=== PATIENT | male | born 1955 | race Caucasian/White ===

== ENCOUNTER 2017-11-26 09:45 | Inpatient (IN) | payer OTHER ==
[~2017-11-26] VITALS: Ht 180.3 cm; Wt 88.0 kg
[~2017-11-26 09:45] MED LIST: ABIL5TAB6 PO; XANA1TAB6 PO
[2017-11-26 10:05] VITALS: BP 175/101; PULSE 91; RESP 22; TEMP 98.9; O2SAT 98
[2017-11-26] MEDS ORDERED: XANA1TAB2 PO (10:19)
[2017-11-26] MEDS ORDERED: ABIL10TA8 PO (10:19)
[2017-11-26 10:52] LABS: AUTOMATED NEUTROPHIL # 4.4 TH/MM3 (1.8-7.7); BASOPHIL # 0.1 TH/MM3 (0-0.2); BASOPHIL % 0.7 % (0.0-2.0); EOSINOPHIL # 0.4 TH/MM3 (0-0.4); EOSINOPHIL % 5.1 % (0.0-4.0); HEMOGLOBIN 15.2 GM/DL (13.0-17.0); LYMPH % 26.1 % (9.0-44.0); MEAN CORPUSCULAR HEMOGLOBIN 29.1 PG (27.0-34.0); MEAN CORPUSCULAR HGB CONC 33.8 % (32.0-36.0); MEAN PLATELET VOLUME 7.9 FL (7.0-11.0); MONOCYTE # 0.9 TH/MM3 (0-0.9); NEUT % 56.1 % (16.0-70.0); PLATELET COUNT 247 TH/MM3 (150-450); RED BLOOD COUNT 5.23 MIL/MM3 (4.50-5.90); RED CELL DISTRIBUTION WIDTH 14.8 % (11.6-17.2); WHITE BLOOD COUNT 7.8 TH/MM3 (4.0-11.0)
[2017-11-26 11:10] LABS: ALBUMIN 4.2 GM/DL (3.4-5.0); AST (GOT) 58 U/L (15-37); BLOOD UREA NITROGEN 13 MG/DL (7-18); CALCIUM 9.7 MG/DL (8.5-10.1); CHLORIDE 104 MEQ/L (98-107); GLOMERULAR FILTRATION RATE 115 ML/MIN (>89); GLUCOSE,RANDOM 85 MG/DL (74-106); SODIUM (NA) 139 MEQ/L (136-145)
[2017-11-26 11:11] LABS: ALT (GPT) 98 U/L (12-78)
[2017-11-26 11:13] LABS: ALKALINE PHOSPHATASE 67 U/L (45-117); TOTAL BILIRUBIN ADULT 0.6 MG/DL (0.2-1.0)
--- NOTE | 2017-11-26 12:14 | PD ---
HPI Chief Complaint: Psychiatric Symptoms Time Seen by Provider: 12:11 Travel History International Travel<30 days: No Contact w/Intl Traveler<30days: No Traveled to known affect area: No History of Present Illness HPI 62-year-old male presents emergency Department under [place] act. His primary care provider Basilio acted him after being seen in the office requesting his medications to be changed back to his previous medications of Paxil and Xanax. The [place] act report states "patient called this morning stating that he is having suicidal and homicidal thoughts. He is extremely agitated now, pacing the room and becoming combative. He denies previous history of suicide attempts." On my examination the patient denies suicidal or homicidal ideations. Denies plan. Denies history of attempts. He states he was on Paxil and Xanax for 14 years and saw a new primary care provider in October who changed his medications and then he started "feeling weird." He went this morning to her office to ask for medication change and she Basilio acted him. He denies illicit drug use. Reports occasional alcohol use. Denies hallucinations. Has history of anxiety and panic attacks. History of hypertension. Onset unknown. Duration unknown. Symptoms are aggravated by medication change. Says his symptoms were better when he was on his old medications. No known allergies. Primary care provider is Dr. Blanco. Has no other medical complaints. Denies chest pain, shortness of abdominal pain, vomiting, fevers, change in urine or stool. No other modifying factors or associated signs and symptoms. PFSH Past Medical History Bipolar Disorder: Yes Anxiety: Yes Cardiovascular Problems: Yes (HTN) Hypertension: Yes Psychiatric: Yes Tetanus Vaccination: < 5 Years Social History Alcohol Use: No Tobacco Use: Yes Substance Use: No Allergies-Medications (Allergen,Severity, Reaction): Coded Allergies: No Known Allergies (Unverified Adverse Reaction, Unknown, 11/26/17) Reported Meds & Prescriptions Reported Meds & Active Scripts Active Reported Clonidine (Clonidine HCl) 0.1 Mg Tab 0.1 Mg PO HS Abilify (Aripiprazole) 10 Mg Tab 5 Mg PO DAILY Review of Systems Except as stated in HPI: all other systems reviewed are Neg Physical Exam Narrative GENERAL: Well-nourished, well-developed male patient, in no acute distress SKIN: Warm and dry. HEAD: Atraumatic. Normocephalic. EYES: Pupils equal and round. ENT: Mucosa pink and moist. NECK: Supple. Trachea midline. CARDIOVASCULAR: Regular rate and rhythm. No murmur appreciated. RESPIRATORY: No accessory muscle use. Clear to auscultation. Breath sounds equal bilaterally. GASTROINTESTINAL: Abdomen soft, non-tender, nondistended. Hepatic and splenic margins not palpable. Bowel sounds are active 4 quadrants. MUSCULOSKELETAL: No obvious deformities. No clubbing. No cyanosis. No edema. BACK: No CVA tenderness. NEUROLOGICAL: Awake and alert. Oriented 3. No obvious cranial nerve deficits. Motor grossly within normal limits. Normal speech. Moves all extremities. 5/5 strength to all extremities. PSYCHIATRIC: No delusional thought processes. No hallucinations. Data Data Last Documented VS Vital Signs Date Time Temp Pulse Resp B/P (MAP) Pulse Ox O2 Delivery O2 Flow Rate FiO2 11/26/17 10:05 98.9 91 22 175/101 (125) 98 Orders Orders Complete Blood Count With Diff (11/26/17 10:21) Comprehensive Metabolic Panel (11/26/17 10:21) Psych Screen (11/26/17 10:21) Drug Screen, Random Urine (11/26/17 10:21) Alcohol (Ethanol) (11/26/17 10:21) Labs Laboratory Tests Test 11/26/17 10:30 11/26/17 11:15 White Blood Count 7.8 TH/MM3 Red Blood Count 5.23 MIL/MM3 Hemoglobin 15.2 GM/DL Hematocrit 45.0 % Mean Corpuscular Volume 86.0 FL Mean Corpuscular Hemoglobin 29.1 PG Mean Corpuscular Hemoglobin Concent 33.8 % Red Cell Distribution Width 14.8 % Platelet Count 247 TH/MM3 Mean Platelet Volume 7.9 FL Neutrophils (%) (Auto) 56.1 % Lymphocytes (%) (Auto) 26.1 % Monocytes (%) (Auto) 12.0 % Eosinophils (%) (Auto) 5.1 % Basophils (%) (Auto) 0.7 % Neutrophils # (Auto) 4.4 TH/MM3 Lymphocytes # (Auto) 2.0 TH/MM3 Monocytes # (Auto) 0.9 TH/MM3 Eosinophils # (Auto) 0.4 TH/MM3 Basophils # (Auto) 0.1 TH/MM3 CBC Comment DIFF FINAL Differential Comment Blood Urea Nitrogen 13 MG/DL Creatinine 0.70 MG/DL Random Glucose 85 MG/DL Total Protein 8.0 GM/DL Albumin 4.2 GM/DL Calcium Level 9.7 MG/DL Alkaline Phosphatase 67 U/L Aspartate Amino Transf (AST/SGOT) 58 U/L Alanine Aminotransferase (ALT/SGPT) 98 U/L Total Bilirubin 0.6 MG/DL Sodium Level 139 MEQ/L Potassium Level 4.3 MEQ/L Chloride Level 104 MEQ/L Carbon Dioxide Level 27.0 MEQ/L Anion Gap 8 MEQ/L Estimat Glomerular Filtration Rate 115 ML/MIN Ethyl Alcohol Level LESS THAN 3 MG/DL Urine Opiates Screen NEG Urine Barbiturates Screen NEG Urine Amphetamines Screen NEG Urine Benzodiazepines Screen POS Urine Cocaine Screen NEG Urine Cannabinoids Screen NEG MDM Medical Decision Making Medical Screen Exam Complete: Yes Emergency Medical Condition: Yes Medical Record Reviewed: Yes Differential Diagnosis Medical clearance for psychiatric evaluation, medication adjustment, suicidal ideation, homicidal ideation Narrative Course Patient presents under a [place] act. Physical examination and vital signs are essentially unremarkable. Patient has no medical complaints to report. Psych screen has been ordered. If the laboratory results are unremarkable, the patient will be medically cleared for psychiatric evaluation and disposition. Diagnosis Primary Impression: Medical clearance for psychiatric admission Condition: Stable Melissa Urbina Nov 26, 2017 12:14
[2017-11-26] MEDS ORDERED: CLON0.1T PO (13:35)
[2017-11-26 14:20] VITALS: BP 162/94; PULSE 87; RESP 20; O2SAT 99
[2017-11-26 17:53] VITALS: BP 158/101; PULSE 77; RESP 18; O2SAT 98
[2017-11-26 18:07] VITALS: BP 151/102; PULSE 77; RESP 18; O2SAT 98
[2017-11-26] MEDS ORDERED: LORazepam 2 MG/ML VIAL IM PRN (20:45)
[2017-11-26] MEDS ORDERED: ALUMINUM/MAGNESIUM/SIMETH 30 ML CUP PO PRN (20:45)
[2017-11-26] MEDS ORDERED: LORazepam 1 MG TAB PO PRN (20:45)
[2017-11-26] MEDS ORDERED: MAGNESIUM HYDROXIDE SUSP 30 ML CUP PO PRN (20:45)
--- NOTE | 2017-11-26 20:58 | RADRPT ---
EXAM DATE/TIME: 11/26/2017 20:42 [facility] COMPARISON: No previous studies available for comparison. INDICATIONS : Pain status post falling onto right shoulder. MEDICAL HISTORY : None. SURGICAL HISTORY : None. ENCOUNTER: Initial ACUITY: 1 day PAIN SCORE: 5/10 LOCATION: Right Shoulder FINDINGS: There are old healed rib fractures in the right lower chest. There is a deformity of the humeral head superolaterally mostly due to old trauma with probable old avulsion coming off the inferior glenoid with vague areas of sclerosis within the humeral head all chronic in nature. CONCLUSION: Chronic changes and no evidence for acute fracture. Jorden Hu MD on November 26, 2017 at 20:54 Board Certified Radiologist. This report was verified electronically.
[2017-11-26] MEDS: REMOVE OLD NICOTINE PATCH T-DERMAL SCH (21:00)
[2017-11-26 21:51] VITALS: BP 196/120; PULSE 84; RESP 18; TEMP 98.2; O2SAT 98
[2017-11-26] MEDS: ACETAMINOPHEN 325 MG TAB PO PRN (22:40)
[2017-11-26] MEDS ORDERED: cloNIDine HCL 0.1 MG TAB PO ONE (22:45)
[2017-11-27 05:42] VITALS: BP 124/92; PULSE 77; RESP 16; TEMP 97.7; O2SAT 96
[2017-11-27] MEDS: ACETAMINOPHEN 325 MG TAB PO PRN ×3 (05:54→20:38)
[2017-11-27 08:40] LABS: BICARBONATE 26.9 MEQ/L (21.0-32.0); BLOOD UREA NITROGEN 11 MG/DL (7-18); CALCIUM 9.5 MG/DL (8.5-10.1); CHLORIDE 102 MEQ/L (98-107); CREATININE 0.69 MG/DL (0.60-1.30); GLOMERULAR FILTRATION RATE 117 ML/MIN (>89); GLUCOSE,RANDOM 96 MG/DL (74-106); SODIUM (NA) 139 MEQ/L (136-145)
[2017-11-27 08:42] LABS: CHOLESTEROL 158 MG/DL (120-200); TRIGLYCERIDES 69 MG/DL (42-150)
[2017-11-27 08:44] LABS: CHOLESTEROL/ HDL RATIO 2.51 RATIO; HDL CHOLESTEROL 62.7 MG/DL (40.0-60.0); LDL CHOLESTEROL 82 MG/DL (0-99)
[2017-11-27] MEDS: NICOTINE 21 MG/24 HR PATCH T-DERMAL SCH (09:00)
[2017-11-27] MEDS: LISINOPRIL 5 MG TAB PO SCH ×2 (09:15→20:36)
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
[2017-11-27] MEDS ORDERED: cloNIDine HCL 0.1 MG TAB PO PRN (09:30)
[2017-11-27 16:20] LABS: HEMOGLOBIN A1C 5.7 % (4.3-6.0)
--- NOTE | 2017-11-27 16:29 | HHI.HP ---
Provisional Diagnosis Admission Date Nov 26, 2017 at 19:07 Diana I. Adjustment disorder with mixed disturbances of emotion and conduct f 43.25 Certification of Person's Competence To Provide Express and Informed Consent I have personally examined Freddy Parrish , a person being served at [facility] on, Nov 27, 2017 16:20. Express and informed consent means consent voluntarily given in writing, by a competent person, after sufficient explanation and disclosure of the subject matter involved to enable the person to make a knowing and willful decision without any element of force, fraud, deceit, duress, or other form of constraint or coercion. This person is 18 years of age or older, is not now known to be incompetent to consent to treatment with a guardian advocate, and does not have a health care surrogate or proxy currently making medical treatment decisions. I have found this person to be one of the following: [] Competent to provide express and informed consent, as defined above, for voluntary admission to this facility and is competent to provide express and informed consent for treatment. He/she has the consistent capacity to make well reasoned, willful, and knowing decisions concerning his or her medical or mental health treatment. The person fully and consistently understands the purpose of the admission for examination/placement and is fully capable of personally exercising all rights assured [place] [] Incompetent to provide express and informed consent to voluntary admission, and this is incompetent to provide express and informed consent to treatment. The person must be transferred to involuntary status and a petition for a guardian advocate filed with the Circuit Court. [] Refusing to provide express and informed consent to voluntary admission but is competent to provide express and informed consent for treatment. The person must be discharged or transferred to involuntary status. Form shall be completed within 24 hours of a person's arrival at the receiving facility and filed in the clinical record of each person: 1. Admitted on a voluntary basis 2. Permitted to provide express and informed consent to his/her own treatment 3. Allowed to transfer from involuntary to voluntary status 4. Prior to permitting a person to consent to his or her own treatment after having been previously found incompetent to consent to treatment. History of Present Illness Capacity: Has Capacity HPI Patient is a 62-year-old white male comes here under [place] act by his primary care physician be contacted stating he was depressed suicidal feeling strange because of medication changes occurred over the past few months. It appears this man was on Paxil and Xanax for number of years who problems a prior physician less than a year ago switched him to other medications. He said his been feeling funny strange depressed and anxious since then. However he did stop those medications a few days ago. Patient is seen screened in the ED urine toxicology positive for benzodiazepines negative for alcohol. 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 He denies any suicidality homicidality voices or visions. Denies any alcohol or drug use. Denies any prior psychiatric contact or hospitalizations her psychotropic medications. He states he felt his behavior was secondary to adverse reactions to new medications of now he is off of them is feeling much better. Is able contracted to no harm. However distally feel patient does meet criteria for further observation for another 24-36 hours. He has been seen by the [facility] galvanizer and he has been medically checked. Will refrain from any psychotropics or antianxiety medication. I do feel he has capacity thus I'll lift [place] act allow her sign voluntary. Patient continues consistent tomorrow will discharge her tomorrow Review of Systems Except as stated in HPI: all other systems reviewed are Neg Past Psych History Psychological trauma history Patient denies Violence risk - others (6 mos) Low Violence risk - self (6 mos) Low Substance Abuse History Drugs/Alcohol past 12 months Denies Past Family Social History Coded Allergies: No Known Allergies (Unverified Allergy, Unknown, 11/26/17) Reported Medications Clonidine (Clonidine) 0.1 Mg Tab, 0.1 MG PO HS for Blood Pressure Management, # 60 TAB 0 Refills 11/26/17 Aripiprazole (Abilify) 10 Mg Tab, 5 MG PO DAILY, #30 TAB 0 Refills 11/26/17 Discontinued Reported Medications Alprazolam (Xanax) 1 Mg Tab, 1 MG PO BID Y for ANXIETY, TAB 0 Refills 11/26/17 Current Medications Medications (Trade) Dose Ordered Sig/Gutierrez Route Start Time Stop Time Status Last Admin (Ativan) 1 mg Q6H PRN PO 11/26/17 20:45 (Ativan Inj) 1 mg Q6H PRN IM 11/26/17 20:45 (Tylenol) 650 mg Q4H PRN PO 11/26/17 20:45 11/27/17 10:42 (Milk Of Magnesia Liq) 30 ml DAILY PRN PO 11/26/17 20:45 (Mag-Al Plus Susp Liq) 30 ml Q6H PRN PO 11/26/17 20:45 (Habitrol 21 Mg Patch.24 Hr) 1 patch DAILY T-DERMAL 11/27/17 09:00 11/27/17 09:00 Miscellaneous Information 1 HS T-DERMAL 11/26/17 21:00 (Prinivil) 5 mg Q12HR PO 11/27/17 09:15 11/27/17 09:15 (Catapres) 0.1 mg Q6H PRN PO 11/27/17 09:30 Family Psych History Denies Social History Patient lives by himself close proximity to family of origin members Patient's Strengths (min. 2) Patient verbally will access healthcare Physical Exam Patient medically cleared ED at the present time sitting quietly in his room is in no acute distress. Patient no respiratory distress. No complaints of abdominal pain. Patient moving all 4 extremities without difficulty. No abnormal motor movements noted Vital Signs Vital Signs Date Time Temp Pulse Resp B/P (MAP) Pulse Ox O2 Delivery O2 Flow Rate FiO2 11/27/17 05:42 97.7 77 16 124/92 (103) 96 11/26/17 18:07 Room Air I/O 11/27/17 11/27/17 11/28/17 08:00 16:00 00:00 Intake Total 240 ml Balance 240 ml Lab Results Test 11/27/17 06:35 Blood Urea Nitrogen 11 MG/DL Creatinine 0.69 MG/DL Random Glucose 96 MG/DL Calcium Level 9.5 MG/DL Sodium Level 139 MEQ/L Potassium Level 3.6 MEQ/L Chloride Level 102 MEQ/L Carbon Dioxide Level 26.9 MEQ/L Anion Gap 10 MEQ/L Estimat Glomerular Filtration Rate 117 ML/MIN Triglycerides Level 69 MG/DL Cholesterol Level 158 MG/DL LDL Cholesterol 82 MG/DL HDL Cholesterol 62.7 MG/DL Cholesterol/HDL Ratio 2.51 RATIO Mental Status Examination Appearance: Appropriate Consciousness: Alert Orientation: x4 Motor Activity: Normal gait Speech: Unremarkable Language: Adequate Fund of Knowledge: Adequate Attention and Concentration: Adequate Memory: Unremarkable Mood: Other (euthymic to mildly dysphoric) Affect: Other (good range and intensity) Thought Process & Associations: Intact Thought Content: Appropriate Hallucination Type: None Delusion Type: None Suicidal Ideation: No Suicidal Plan: No Suicidal Intention: No Homicidal Ideation: No Homicidal Plan: No Homicidal Intention: No Insight: Adequate Judgment: Adequate Assessment & Plan Problem List: (1) Acute adjustment disorder with mixed disturbance of emotions and conduct ICD Codes: F43.25 - Adjustment disorder with mixed disturbance of emotions and conduct Assessment & Plan Estimated LOS: days patient does meet criteria for further assessment observation another 24-36 hours. Patient does have capacity at this time thus I 'll lift [place] Pavel sign voluntary. Will refrain from any psychotropic medications. Consideration of discharge tomorrow if remains stable and consistent Discharge Planning Possible discharge tomorrow Request HC Surrog/Guard Advoc?: No Freddy Barkley MD Nov 27, 2017 16:29
[2017-11-27] MEDS ORDERED: LISI-519 PO (17:15)
[2017-11-27 17:28] VITALS: BP 140/91; PULSE 69; RESP 17; TEMP 98.5; O2SAT 98
[2017-11-27] MEDS: REMOVE OLD NICOTINE PATCH T-DERMAL SCH (20:36)
[2017-11-28] MEDS: ACETAMINOPHEN 325 MG TAB PO PRN ×2 (04:27→09:20)
[2017-11-28 06:05] VITALS: BP 122/71; PULSE 67; RESP 16; TEMP 98.1; O2SAT 97
[2017-11-28] MEDS: NICOTINE 21 MG/24 HR PATCH T-DERMAL SCH (09:21)
[2017-11-28] MEDS: LISINOPRIL 5 MG TAB PO SCH (09:21)
[2017-11-28 10:20] VITALS: RESP 14
--- NOTE | 2017-11-28 11:38 | MB ---
cc: JOURDAN ALCALA TRENTON Y. PA DATE OF CONSULTATION 11/28/2015 CHIEF COMPLAINT Right shoulder pain. HISTORY OF PRESENT ILLNESS The patient is a 62-year-old white male who was [place] acted on 11/27/2017. He complains of right shoulder pain. He states that he got into an altercation with the police and they dragged or threw him down. He states at that point he says felt a "tearing of his right shoulder." He states that he has had pain in his shoulder ever since. He reports he is unable to move the shoulder. He states that anytime he moves the shoulder, it hurts from his shoulder to his neck and radiates down his right arm. He denies any numbness or tingling or radiation of symptoms. Denies pain anywhere else. Denies any shortness of breath or loss of consciousness. 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 He also reports that he has previously seen Dr. Stauffer for an orthopedic needs down in [place]. REVIEW OF SYSTEMS Negative for from except for what is mentioned in the HPI. ALLERGIES No known allergies. ILLNESSES Anxiety REPORTED MEDICATIONS 1. Clonidine 2. Aripiprazole 3. Alprazolam SOCIAL HISTORY He lives by himself in close proximity to family. PAST MEDICAL HISTORY Noncontributory PHYSICAL EXAM GENERAL: This is a well-developed, well-nourished 62-year white male in no acute distress resting comfortably while eating breakfast. HEAD: Normocephalic, atraumatic. EARS: Hearing intact bilaterally. EYES: Extraocular motions intact. Pupils equal, round react to light. NECK: Supple. No evidence of lymphadenopathy. LUNGS: No use of accessory muscles while breathing and no wheezes noted. ABDOMEN: Soft and nontender. HEART: No grade 4 murmur present. EXTREMITIES: Right arm, limited motion of the shoulder secondary to extreme pain. I am only able to achieve approximately 20 degrees of forward flexion before the patient withdrawals and has pain. He has full motion of the elbow, wrist and fingers and full sensation to median and ulnar nerves distribution. He is exquisitely tender over the biceps tendon as well as the rotator cuff on the lateral edge. I am unable to assess strength due to pain and unable to perform any special tests due to pain. Left arm, full motion of the shoulder, elbow, wrist and fingers with no pain and full sensation distally. VITALS: Temperature 98.1, pulse 67, respiratory rate 16 per minute, blood pressure 122/71, O2 saturation 97 on room air. LABORATORY DATA Hemoglobin 15.2, hematocrit 45. Sodium 139, potassium 3.6, chloride 102, CO2 26.9. His toxicology report was positive for benzodiazepines. IMAGING STUDIES X-rays were reviewed of the right shoulder which shows progressing osteoarthritis of the glenohumeral joint. Shows an undetermined age, potential fracture in the neck of the scapula. This appears to a old in nature. ASSESSMENT 1. Osteoarthritis of the right shoulder. 2. Rotator cuff tendonitis with biceps tendonitis. PLAN The treatment options were discussed with the patient. I informed him this is nonoperative management. There is nothing acutely fractured at this time. I believe he is having a flare-up of his rotator cuff muscles and biceps tendon. This is likely a result of the incident he had with the police. I would recommend [id number] NSAID's at this time. I would recommend upon discharge he follow up with either our office or with Dr. Stauffer's office for further evaluation potentially receiving a subacromial steroid injection. I believe that will give him the greatest release. There will be no orthopedic intervention needed at this time and he may follow up as needed on an outpatient basis with orthopedics. The above patient was reviewed and discussed with Dr. Alcala and he agrees with the above dictation. Dictated by Robert Bae PA-C I also saw and examined this patient. History, past medical history, social history, review of systems, physical exam, radiographs, assessment, and plan were also reviewed. Plan on nonoperative treatment. A mid-level provider in my office (nurse practitioner or physician grooming assistant) may see this patient on follow-up visits and continue to implement the objectives of this plan including : Starting or adjusting medications, injections, cast application, orthotics, brace application, physical therapy, radiological studies (including x-ray, MRI , CT, ultrasound, bone scan), vascular studies, neurologic studies, specialist consultation, and proceeding with surgical management, as appropriate. MD SAHRA Champion/FARAZ /10:29 AM /11:25 AM [email or web address]
--- NOTE | 2017-11-28 12:12 | RADRPT ---
EXAM DATE/TIME: 11/28/2017 10:17 [facility] COMPARISON: No previous studies available for comparison. INDICATIONS : Right shoulder pain. MEDICAL HISTORY : None. SURGICAL HISTORY : Rt knee, left shoulder ENCOUNTER: [facility] ACUITY: > 1 year PAIN SCORE: 3/10 LOCATION: Right shoulder TECHNIQUE: Multiplanar, multisequence MRI examination was performed without contrast. FINDINGS: There is severe glenohumeral joint osteoarthritis. Reactive appearing subchondral marrow edema seen o n both sides of the joint and there is a large effusion with severe synovitis. Large amount of synovi al debris and mildly masslike synovitis seen in the axillary recess. There is severe and diffuse rotator cuff tendinosis. A subcentimeter full-thickness tear is seen of t he anterior, distal fibers of supraspinatus, for example series 3 image 10. No other cuff tears are d emonstrated. Muscles of the rotator cuff are within normal limits. Minimal subacromial/subdeltoid bursitis. Type I acromion with mild lateral downsloping been no signif icant subacromial spurring seen. There is mild to moderate osteoarthritis of the acromioclavicular abraham int. Long head biceps tendon is intact. Numerous old, healed right rib fractures are seen. CONCLUSION: 1. Severe glenohumeral joint arthropathy with findings most typical of osteoarthritis but potentially secondary osteoarthritis related to long-standing inflammatory arthropathy. There is a large effusio n and severe synovitis at the time of imaging. Infectious arthropathy not entirely excludable by this appearance. Also some masslike synovial thickening in the axillary recess region and pigmented villo nodular synovitis would be in the differential. 2. There is diffusely severe rotator cuff tendinosis. Focal full-thickness rim rent tear of distal powell praspinatus. 3. Very mild subacromial/subdeltoid bursitis. 4. Lateral downsloping of the acromion and mild to moderate osteoarthritis of the acromioclavicular j oint. 5. Numerous old right rib fractures. Freddy Herman MD on November 28, 2017 at 12:01 Board Certified Radiologist. This report was verified electronically.
--- NOTE | 2017-11-28 13:20 | HHI.DS ---
Psychiatry Discharge Summary Inpatient Psychiatric care?: Yes Advance Directive: No Reason Not Provided: Due to Patient Condition Mental Health AdvanceDirective: No Health Care Proxy: No Admission Admission Date Nov 26, 2017 at 19:07 Admission Diagnosis: (1) Acute adjustment disorder with mixed disturbance of emotions and conduct ICD Code: F43.25 - Adjustment disorder with mixed disturbance of emotions and conduct (2) Right shoulder injury ICD Code: S49.91XA - Unspecified injury of right shoulder and upper arm, initial encounter Brief History Patient is a 62-year-old white male comes here under [place] act by his primary care physician be contacted stating he was depressed suicidal feeling strange because of medication changes occurred over the past few months. It appears this man was on Paxil and Xanax for number of years who problems a prior physician less than a year ago switched him to other medications. He said his been feeling funny strange depressed and anxious since then. However he did stop those medications a few days ago. Patient is seen screened in the ED urine toxicology positive for benzodiazepines negative for alcohol. 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 He denies any suicidality homicidality voices or visions. Denies any alcohol or drug use. Denies any prior psychiatric contact or hospitalizations her psychotropic medications. He states he felt his behavior was secondary to adverse reactions to new medications of now he is off of them is feeling much better. Is able contracted to no harm. However distally feel patient does meet criteria for further observation for another 24-36 hours. He has been seen by the [facility] focuser and he has been medically checked. Will refrain from any psychotropics or antianxiety medication. I do feel he has capacity thus I'll lift [place] act allow her sign voluntary. Patient continues consistent tomorrow will discharge her tomorrow Tobacco Use In Past 30 Days: 5 or More Cigarettes/Day Alcohol Use: Monthly or Less Hospital Course Patient's hospital course was uneventful, he was observed psychotropic medication 3. He remains calm cooperative alert oriented. There is no signs of psychosis or delusions. He is able contracted to do no harm. Patient does wish to be discharged today. He does have a safe place to go. He is aware of the injury to his right shoulder. He states does have an orthopedist that he sees in the community that he would wish to have his follow-up care with. This is okay with me. Thus patient to be discharged today with no Rx by me. He may continue his own schedule medications at home. He does have Motrin at home. He should restrict activities to that right shoulder to what is tolerable. The follow-up as soon as possible with the orthopedist. We will also refer him to [facility] psychiatric services in his area the follow-up within the next week also. There may be some underlying mood disorder at this time is under control. That I feel he needs further monitoring. Thus patient be discharged today with no Rx by me, follow-up own orthopedist and follow [facility] Results Blood Pressure 122 / 71 Vital Signs Date Time Temp Pulse Resp B/P (MAP) Pulse Ox O2 Delivery O2 Flow Rate FiO2 11/28/17 10:20 14 11/28/17 06:05 98.1 67 122/71 (88) 97 11/26/17 18:07 Room Air Laboratory Tests Test 11/26/17 10:30 11/26/17 11:15 11/27/17 06:35 Monocytes (%) (Auto) 12.0 % (0.0-8.0) Eosinophils (%) (Auto) 5.1 % (0.0-4.0) Aspartate Amino Transf (AST/SGOT) 58 U/L (15-37) Alanine Aminotransferase (ALT/SGPT) 98 U/L (12-78) Urine Benzodiazepines Screen POS (NEG) HDL Cholesterol 62.7 MG/DL (40.0-60.0) Laboratory Results Test 11/27/17 06:35 Cholesterol Level 158 MG/DL (120-200) HDL Cholesterol 62.7 MG/DL (40.0-60.0) Hemoglobin A1c 5.7 % (4.3-6.0) LDL Cholesterol 82 MG/DL (0-99) Triglycerides Level 69 MG/DL (42-150) Summary of Procedures None done Imaging Last Impressions Shoulder MRI 11/28/17 0000 Signed Impressions: Service Date/Time: Tuesday, November 28, 2017 10:17 - CONCLUSION: 1. Severe glenohumeral joint arthropathy with findings most typical of osteoarthritis but potentially secondary osteoarthritis related to long-standing inflammatory arthropathy. There is a large effusion and severe synovitis at the time of imaging. Infectious arthropathy not entirely excludable by this appearance. Also some masslike synovial thickening in the axillary recess region and pigmented villonodular synovitis would be in the differential. 2. There is diffusely severe rotator cuff tendinosis. Focal full-thickness rim rent tear of distal supraspinatus. 3. Very mild subacromial/subdeltoid bursitis. 4. Lateral downsloping of the acromion and mild to moderate osteoarthritis of the acromioclavicular joint. 5. Numerous old right rib fractures. Freddy Herman MD Shoulder X-Ray 11/26/17 0000 Signed Impressions: Service Date/Time: Sunday, November 26, 2017 20:42 - CONCLUSION: Chronic changes and no evidence for acute fracture. Jorden Hu MD Pending results at discharge: No Medications # of Antipsychotic meds at D/C: 0 Approp Antipsych med options 1 - Minimum of three failed multiple trials of monotherapy. 2 - Documented plan to taper to monotherapy due to previous use of multiple meds OR cross-taper in progress at D/C. 3 - Documentation of augmentation of Clozapine. 4 - Justification other than those listed in allowable values 1-3, document here : Discharge Discharge Date: Nov 28, 2017 Discharge Diagnosis: (1) Acute adjustment disorder with mixed disturbance of emotions and conduct Diagnosis: Principal ICD Code: F43.25 - Adjustment disorder with mixed disturbance of emotions and conduct (2) Right shoulder injury Diagnosis: Secondary ICD Code: S49.91XA - Unspecified injury of right shoulder and upper arm, initial encounter Pt Condition on Discharge: Stable Discharge Disposition: Discharge Home Discharge Instructions Diet Instructions: As Tolerated, No Restrictions Activities you can perform: See Additionl Instruction Other Activity Instructions: Restricted use of right upper extremity and shoulder until assessed by orthopedist Scheduled Appointment: [facility] (her mental health services, follow- up private orthopedist first part of next week for further care of right shoulder injury) Discharge Time > 30 minutes Mental Status Examination Appearance: Appropriate Consciousness: Alert Orientation: x4 Motor Activity: Normal gait Speech: Unremarkable Language: Adequate Fund of Knowledge: Adequate Attention and Concentration: Adequate Memory: Unremarkable Mood: Other (euthymic to mildly dysphoric) Affect: Other (good range and intensity) Thought Process & Associations: Intact Thought Content: Appropriate Hallucination Type: None Delusion Type: None Suicidal Ideation: No Suicidal Plan: No Suicidal Intention: No Homicidal Ideation: No Homicidal Plan: No Homicidal Intention: No Insight: Adequate Judgment: Adequate Discharge/Advance Care Plan Health Problems: (1) Acute adjustment disorder with mixed disturbance of emotions and conduct Goals to promote your health * To prevent worsening of your condition and complications * To maintain your health at the optimal level Directions to meet your goals Take your medications as prescribed Follow your dietary instruction Follow activity as directed Keep your appointments as scheduled Take your immunizations and boosters as scheduled If your symptoms worsen call your PCP, if no PCP go to Urgent Care Center or Emergency Room For 05/05 questions related to your inpatient stay or results of tests pending at discharge, please contact Dr. Freddy Barkley at Smoking is Dangerous to Your Health. Avoid second hand smoking Freddy Barkley MD Nov 28, 2017 13:20
== END 2017-11-28 15:45 | disposition home or self-care (01) | DRG 882 ==
LOC: NEPJ 09:45 → NEDA 19:07 → H260 19:56
PROVIDERS: ADMIT Psychiatry & Neurology Psychiatry; ATTEND Psychiatry & Neurology Psychiatry
DX: F43.25 Adjustment disorder with mixed disturbance of emotions and conduct (principal); R45.850 Homicidal ideations; R45.851 Suicidal ideations; I10 Essential (primary) hypertension; J44.9 Chronic obstructive pulmonary disease, unspecified; F41.0 Panic disorder [episodic paroxysmal anxiety]; F17.210 Nicotine dependence, cigarettes, uncomplicated; M19.011 Primary osteoarthritis, right shoulder; M75.21 Bicipital tendinitis, right shoulder; M75.81 Other shoulder lesions, right shoulder; F31.9 Bipolar disorder, unspecified; B19.20 Unspecified viral hepatitis C without hepatic coma
CPT/HCPCS: 73030; 73221; 80048; 80053; 80061; 80307; 83036; 85025